=== PATIENT | male | born 1990 | race Two or more races ===

== ENCOUNTER 2019-10-03 14:02 | Emergency (ER) | payer SELFPAY ==
[~2019-10-03] VITALS: Ht 180.3 cm; Wt 82.0 kg
[2019-10-03 15:23] LABS: HEMATOCRIT. 46.3 % (42.0-52.0); HEMOGLOBIN. 15.7 g/dL (14.0-18.0); MEAN CORPUSCULAR HEMOGLOBIN 30.6 pg (28.0-32.0); MEAN CORPUSCULAR VOLUME 89.9 fL (80.0-94.0); MEAN PLATELET VOLUME 7.3 fl (7.4-10.4); PLATELET 341 x1000/uL (130-400); RED BLOOD CELL COUNT 5.15 mill/uL (4.7-6.1); RED CELL DISTRIBUTION WIDTH 14.7 % (11.6-14.6)
[2019-10-03 15:24] LABS: BASOPHILS % 0.5 % (0.0-2.0); EOSINOPHILS % 0.5 % (0.0-5.0); LYMPHOCYTES % 15.3 % (20.0-50.0); MONOCYTES % 8.5 % (2.0-8.0); NEUTROPHILS % 75.2 % (40.0-76.0)
[2019-10-03 15:29] LABS: CHLORIDE 110 mEq/L (98-107)
[2019-10-03] MEDS ORDERED: SODIUM CHLORIDE 0.9% 1,000 ML IV ONE (15:30)
[2019-10-03 15:33] LABS: ETHANOL BLOOD < 10 mg/dL
[2019-10-03 15:38] LABS: CREATINE KINASE 128 IU/L (39-308)
[2019-10-03 15:43] LABS: INR 0.9; PROTHROMBIN TIME 10.3 sec (9.6-11.0)
[2019-10-03 17:35] VITALS: BP 111/67
[2019-10-03 19:16] LABS: CLARITY URINE CLEAR (CLEAR); COLOR URINE DARK YELLOW (YELLOW); KETONES URINE TRACE (NEGATIVE); LEUKOCYTE ESTERASE URINE NEGATIVE (NEGATIVE); NITRITE URINE NEGATIVE (NEGATIVE); OCCULT BLOOD URINE NEGATIVE (NEGATIVE); PH URINE 5.5 (4.5-8.0); PROTEIN URINE NEGATIVE (NEGATIVE); SPECIFIC GRAVITY URINE 1.028 (1.005-1.030)
[2019-10-03 19:30] LABS: *AMPHETAMINES SCREEN URINE PRESUMTIVE POSITIVE (NEGATIVE); *BARBITURATES SCREEN URINE NEGATIVE (NEGATIVE); *BENZODIAZEPINES SCREEN URINE NEGATIVE (NEGATIVE); *COCAINE SCREEN URINE NEGATIVE (NEGATIVE)
[2019-10-03 19:31] LABS: CANNABINOID URINE SCREEN PRESUMTIVE POSITIVE (NEGATIVE); METHADONE URINE SCREEN NEGATIVE (NEGATIVE); OPIATES URINE SCREEN NEGATIVE (NEGATIVE); PHENCYCLIDINE URINE SCREEN NEGATIVE (NEGATIVE)
== END 2019-10-03 20:02 | disposition left against medical advice (07) ==
LOC: ER 14:11
DX: T42.4X5A Adverse effect of benzodiazepines, initial encounter (principal); F19.10 Other psychoactive substance abuse, uncomplicated; Y92.89 Other specified places as the place of occurrence of the external cause
CPT/HCPCS: 36415; 71045; 80053; 80305; 80307; 80320; 80329; 81003; 82140; 82550; 83880; 84443; 84484; 85025; 93005; 96360; 99285; G0480

== ENCOUNTER 2022-09-03 11:41 | Inpatient (IN) | payer MEDICAID ==
[~2022-09-03] VITALS: Ht 172.7 cm; Wt 94.8 kg
[2022-09-03] MEDS ORDERED: VANCOMYCIN 1.25GM PMX (XELLIA) 250 ML IV SCH (12:45)
[2022-09-03] MEDS ORDERED: SODIUM CHLORIDE 0.9% 1000ML BAG (SEPSIS BOLUS) IV ONE (12:45)
[2022-09-03] MEDS ORDERED: KETOROLAC 15MG/ML VIAL IV ONE (12:45)
[2022-09-03] MEDS ORDERED: PIPERACILLIN/TAZ 3.375G PREMIX 50 ML IV ONE (12:45)
[2022-09-03] MEDS ORDERED: TETANUS, DIPHTHERIA, PERTUSSIS VAC/PF 0.5ML (>10YR OLD) IM ONE ×2 (13:00→16:30)
[2022-09-03 13:26] LABS: HEMATOCRIT. 43.5 % (42.0-52.0); HEMOGLOBIN. 15.2 g/dL (14.0-18.0); MEAN CORPUSCULAR HEMOGLOBIN 31.1 pg (28.0-32.0); MEAN CORPUSCULAR VOLUME 89.1 fL (80.0-94.0); MEAN PLATELET VOLUME 6.9 fl (7.4-10.4); PLATELET 428 x1000/uL (130-400); RED BLOOD CELL COUNT 4.88 mill/uL (4.7-6.1); RED CELL DISTRIBUTION WIDTH 15.2 % (11.6-14.6)
[2022-09-03 13:30] LABS: CHLORIDE 105 mEq/L (98-107)
[2022-09-03 13:33] LABS: PROTHROMBIN TIME 10.5 sec (9.6-11.0)
[2022-09-03 13:49] LABS: PLATELET ESTIMATE INCREASED
[2022-09-03 14:00] LABS: CLARITY URINE CLEAR (CLEAR); COLOR URINE DARK YELLOW (YELLOW); KETONES URINE TRACE (NEGATIVE); LEUKOCYTE ESTERASE URINE NEGATIVE (NEGATIVE); NITRITE URINE NEGATIVE (NEGATIVE); OCCULT BLOOD URINE NEGATIVE (NEGATIVE); PH URINE 6.5 (4.5-8.0); PROTEIN URINE 1+ (NEGATIVE); SPECIFIC GRAVITY URINE 1.027 (1.005-1.030)
[2022-09-03 14:48] LABS: *AMPHETAMINES SCREEN URINE PRESUMTIVE POSITIVE (NEGATIVE); *BARBITURATES SCREEN URINE NEGATIVE (NEGATIVE); *BENZODIAZEPINES SCREEN URINE NEGATIVE (NEGATIVE); *COCAINE SCREEN URINE NEGATIVE (NEGATIVE); CANNABINOID URINE SCREEN PRESUMTIVE POSITIVE (NEGATIVE); METHADONE URINE SCREEN NEGATIVE (NEGATIVE); OPIATES URINE SCREEN NEGATIVE (NEGATIVE); PHENCYCLIDINE URINE SCREEN NEGATIVE (NEGATIVE)
[2022-09-03] MEDS ORDERED: DOCUSATE SODIUM 100MG CAPSULE PO PRN (15:45)
[2022-09-03] MEDS ORDERED: KETOROLAC 15MG/ML VIAL IV PRN ×2 (15:45→20:15)
[2022-09-03] MEDS ORDERED: ONDANSETRON HCL 4MG/2ML INJ IV PRN (15:45)
[2022-09-03] MEDS ORDERED: GUAIFENESIN 200MG/10ML SUGAR FREE UDC PO PRN (15:45)
[2022-09-03] MEDS ORDERED: NITROGLYCERIN 0.4MG TABLET SL SL PRN (15:45)
[2022-09-03] MEDS ORDERED: IPRATROPIUM/ALBUTEROL 0.5-3(2.5)MG/3ML NEB NEB PRN (15:45)
[2022-09-03] MEDS ORDERED: MAGNESIUM/ALUMINUM HYDROXIDE/SIMETHICONE 30ML UDC PO PRN (15:45)
[2022-09-03] MEDS ORDERED: ACETAMINOPHEN 325MG TABLET PO PRN ×2 (15:45)
[2022-09-03] MEDS ORDERED: CLONIDINE 0.1MG TABLET PO PRN (15:45)
[2022-09-03 16:44] LABS: ETHANOL BLOOD < 10 mg/dL; T4 FREE 1.37 ng/dL (0.76-1.46); TOTAL IRON BINDING CAPACITY 283 ug/dL (250-450)
[2022-09-03 17:03] LABS: FOLIC ACID (FOLATE) SERUM 4.8 ng/mL (>5.38)
[2022-09-03] MEDS: SODIUM CHLORIDE 0.9% 1,000 ML IV SCH (18:00)
[2022-09-03] MEDS: ENOXAPARIN 40MG/0.4ML SYR SUBCUT SCH (18:40)
[2022-09-03] MEDS: ASCORBIC ACID 500 MG TABLET PO SCH (21:00)
[2022-09-03] MEDS ORDERED: ZOLPIDEM TARTRATE 5MG TABLET PO PRN (21:00)
[2022-09-03] MEDS: FAMOTIDINE 20MG TABLET PO SCH (21:00)
[2022-09-03] MEDS ORDERED: VANCOMYCIN 1250MG in DEXTROSE 5% WATER 250ML IV SCH (22:00)
[2022-09-03] MEDS: PIPERACILLIN/TAZ 3.375G PREMIX 50 ML IV SCH ×2 (22:07→22:25)
[2022-09-04 05:20] LABS: HEMATOCRIT. 41.3 % (42.0-52.0); HEMOGLOBIN. 13.6 g/dL (14.0-18.0); MEAN CORPUSCULAR HEMOGLOBIN 29.5 pg (28.0-32.0); MEAN CORPUSCULAR VOLUME 89.4 fL (80.0-94.0); MEAN PLATELET VOLUME 6.7 fl (7.4-10.4); PLATELET 363 x1000/uL (130-400); RED BLOOD CELL COUNT 4.63 mill/uL (4.7-6.1); RED CELL DISTRIBUTION WIDTH 15.1 % (11.6-14.6)
[2022-09-04 05:26] LABS: CHLORIDE 107 mEq/L (98-107)
[2022-09-04] MEDS: SODIUM CHLORIDE 0.9% 1,000 ML IV SCH ×2 (05:30→11:45)
[2022-09-04 05:35] LABS: PHOSPHORUS 3.3 mg/dL (2.5-4.9)
[2022-09-04] MEDS ORDERED: VANCOMYCIN 1.25GM PMX (XELLIA) 250 ML IV SCH ×3 (06:00→13:30)
[2022-09-04] MEDS ORDERED: PIPERACILLIN/TAZOBACTAM 3.375G in DEXT 5% WATER 50ML IV SCH ×2 (06:00→15:00)
[2022-09-04 08:00] VITALS: BP 116/74
[2022-09-04] MEDS ORDERED: ZINC SULFATE 220 MG ( 50 ) CAPSULE PO SCH (09:00)
[2022-09-04] MEDS: ASCORBIC ACID 500 MG TABLET PO SCH (09:16)
[2022-09-04] MEDS: FAMOTIDINE 20MG TABLET PO SCH (09:16)
[2022-09-04 10:34] VITALS: BP 120/80
[2022-09-04 12:00] VITALS: BP 121/82
[2022-09-04 12:40] LABS: PLATELET ESTIMATE NORMAL
[2022-09-04 16:00] VITALS: BP_SYST 102; BP_SYST 125; BP_DIAS 64; BP_DIAS 80
[2022-09-04] MEDS: ENOXAPARIN 40MG/0.4ML SYR SUBCUT SCH (17:41)
== END 2022-09-04 19:45 | disposition left against medical advice (07) | DRG 720 ==
LOC: ER 13:42 → MICUSO 15:00 → EDBEDREQSVC 20:17 → 6EST 09-04 08:10
PROVIDERS: ADMIT Internal Medicine; ATTEND Internal Medicine
DX: A41.9 Sepsis, unspecified organism (principal); E44.1 Mild protein-calorie malnutrition; L03.115 Cellulitis of right lower limb; E87.1 Hypo-osmolality and hyponatremia; R73.03 Prediabetes; F15.90 Other stimulant use, unspecified, uncomplicated; F17.200 Nicotine dependence, unspecified, uncomplicated; Z68.31 Body mass index [BMI] 31.0-31.9, adult; Z53.29 Procedure and treatment not carried out because of patient's decision for other reasons
CPT/HCPCS: 36415; 71045; 73590; 80053; 80305; 80320; 81003; 82607; 82746; 83036; 83540; 83550; 83605; 83735; 84100; 84145; 84439; 84443; 84484; 85025; 90715; 93005; 93971; 99291; J1650; J1885; J2543; J3370; J7030; J7060; G0480

== ENCOUNTER 2023-04-30 01:53 | Inpatient (IN) | payer MEDICAID ==
[~2023-04-30] VITALS: Ht 185.4 cm; Wt 99.0 kg
[~2023-04-30 01:53] MED LIST: CLIN-194 MT
[2023-04-30 02:20] VITALS: O2SAT 98
[2023-04-30 03:50] LABS: CLARITY URINE TURBID (CLEAR); COLOR URINE YELLOW (YELLOW); GLUCOSE URINE NEGATIVE (NEGATIVE); KETONES URINE NEGATIVE (NEGATIVE); LEUKOCYTE ESTERASE URINE TRACE (NEGATIVE); NITRITE URINE NEGATIVE (NEGATIVE); OCCULT BLOOD URINE NEGATIVE (NEGATIVE); PH URINE 8.5 (4.5-8.0); PROTEIN URINE NEGATIVE (NEGATIVE); SPECIFIC GRAVITY URINE 1.023 (1.005-1.030)
[2023-04-30 05:20] LABS: RBC URINE 0-2 /hpf (0-2)
[2023-04-30 05:22] LABS: AMORPHOUS SEDIMENT URINE 1+ /lpf; BACTERIA URINE NONE SEEN; SQUAMOUS EPITHELIAL CELL URINE NONE SEEN /lpf (RARE/1+)
[2023-04-30] MEDS ORDERED: DOXYCYCLINE HYCLATE 100 MG/VIAL IV ONE (06:30)
[2023-04-30] MEDS ORDERED: CEFTRIAXONE 1GM PREMIX 50 ML IV ONE (06:30)
[2023-04-30] MEDS ORDERED: DOXYCYCLINE 100MG in DEXTROSE 5% WATER 100ML IV NR (06:45)
[2023-04-30 08:17] LABS: BASOPHILS % 0.7 % (0.0-2.0); EOSINOPHILS % 0.8 % (0.0-5.0); HEMATOCRIT. 43.8 % (42.0-52.0); HEMOGLOBIN. 14.7 g/dL (14.0-18.0); LYMPHOCYTES % 8.9 % (20.0-50.0); MEAN CORPUSCULAR HEMOGLOBIN 30.1 pg (28.0-32.0); MEAN CORPUSCULAR HGB CONC 33.7 g/dL (31.0-37.0); MEAN CORPUSCULAR VOLUME 89.5 fL (80.0-94.0); MEAN PLATELET VOLUME 6.8 fl (7.4-10.4); MONOCYTES % 6.8 % (2.0-8.0); NEUTROPHILS % 82.8 % (40.0-76.0); PLATELET 372 x1000/uL (130-400); RED BLOOD CELL COUNT 4.89 mill/uL (4.7-6.1); RED CELL DISTRIBUTION WIDTH 14.5 % (11.6-14.6); WHITE BLOOD COUNT 17.6 x1000/uL (4.5-11.0)
[2023-04-30 08:32] LABS: ALANINE AMINOTRANSFERASE 32 IU/L (10-49); ALBUMIN 3.6 g/dL (3.2-4.8); ASPARTATE AMINOTRANSFERASE 19 IU/L (<34); BILIRUBIN TOTAL 0.3 mg/dL (0.1-1.0); CALCIUM 8.7 mg/dL (8.7-10.4); CARBON DIOXIDE 27 mEq/L (21-32); CHLORIDE 105 mEq/L (98-107); CREATININE 0.7 mg/dL (0.6-1.3); GLUCOSE 118 mg/dL (70-105); POTASSIUM 3.8 mEq/L (3.5-5.1); PROTEIN TOTAL 6.9 g/dL (6.0-8.3); PROTHROMBIN TIME 10.3 sec (9.6-11.0); SODIUM 138 mEq/L (136-145); UREA NITROGEN BLOOD 14 mg/dL (9-23)
[2023-04-30] MEDS ORDERED: MORPHINE SULFATE 4 MG/ML CPJ (NOT FOR IM USE) IV STA (09:38)
[2023-04-30 12:00] VITALS: BP 110/69; PULSE 79; RESP 20; TEMP 97.2
[2023-04-30] MEDS ORDERED: DOCUSATE SODIUM 100MG CAPSULE PO PRN (13:15)
[2023-04-30] MEDS ORDERED: GUAIFENESIN 200MG/10ML SUGAR FREE UDC PO PRN (13:15)
[2023-04-30] MEDS ORDERED: CLONIDINE 0.1MG TABLET PO PRN (13:15)
[2023-04-30] MEDS ORDERED: CEFTRIAXONE 1GM PREMIX 50 ML IV SCH (13:15)
[2023-04-30] MEDS ORDERED: MAGNESIUM/ALUMINUM HYDROXIDE/SIMETHICONE 30ML UDC PO PRN (13:15)
[2023-04-30] MEDS ORDERED: ACETAMINOPHEN 325MG TABLET PO PRN ×2 (13:15)
[2023-04-30] MEDS ORDERED: PANTOPRAZOLE SODIUM 40 MG/VIAL IV NR (13:15)
[2023-04-30] MEDS ORDERED: IPRATROPIUM/ALBUTEROL 0.5-3(2.5)MG/3ML NEB HHN PRN (13:15)
[2023-04-30] MEDS ORDERED: ONDANSETRON HCL 4MG/2ML INJ IV PRN (13:15)
[2023-04-30] MEDS ORDERED: NALOXONE HCL 0.4MG/ML VIAL IV PRN ×2 (13:30)
[2023-04-30] MEDS ORDERED: TRAMADOL 50MG TABLET PO PRN (13:30)
[2023-04-30] MEDS ORDERED: CEFTRIAXONE 1,000 MG in DEXTROSE 5% WATER 50 ML IV SCH (15:00)
[2023-04-30 16:00] VITALS: BP 126/79; PULSE 74; RESP 20; TEMP 96.6
[2023-04-30 17:13] VITALS: BP 126/79; PULSE 74; RESP 20; TEMP 96.6
[2023-04-30] MEDS ORDERED: DOXYCYCLINE 100 MG in DEXT 5% WATER 100 ML IV SCH (18:00)
[2023-04-30 18:21] LABS: CREATINE KINASE 47 IU/L (46-171)
[2023-04-30 18:24] LABS: TROPONIN I HIGH SENSITIVITY < 4 ng/L (3.0-53)
[2023-05-01] MEDS ORDERED: CEFTRIAXONE 1,000 MG in DEXTROSE 5% WATER 50 ML IV SCH (07:00)
[2023-05-03 09:06] LABS: CHLAMYDIA TRACHOMATIS NAA Negative (Negative); NEISSERIA GONORRHOEAE NAA Positive (Negative)
== END 2023-04-30 22:30 | disposition left against medical advice (07) | DRG 501 ==
LOC: ER 01:53 → 6EST 11:07 → EDBEDREQ 11:10
PROVIDERS: ADMIT Internal Medicine; ATTEND Internal Medicine
DX: N45.3 Epididymo-orchitis (principal); D72.829 Elevated white blood cell count, unspecified; N43.3 Hydrocele, unspecified; Z53.29 Procedure and treatment not carried out because of patient's decision for other reasons; F17.210 Nicotine dependence, cigarettes, uncomplicated; F19.10 Other psychoactive substance abuse, uncomplicated; Z79.899 Other long term (current) drug therapy
CPT/HCPCS: 36415; 76870; 80053; 80320; 81003; 82550; 84484; 85025; 87491; 87591; 93976; 99285; C9113; J0696; J2270; J3490; J7060; G0480